=== PATIENT | male | born 2000 | race Two or more races ===

== ENCOUNTER 2020-08-28 13:09 | Emergency (ER) | payer OTHER ==
[~2020-08-28] VITALS: Ht 185.4 cm; Wt 118.2 kg
[2020-08-28] MEDS ORDERED: AZITHROMYCIN 500 MG TABLET PO ONE (15:30)
[2020-08-28] MEDS ORDERED: ALBUTEROL SULFATE HFA 90 MCG/PUFF 8 GM INHALER IH ONE (15:30)
[2020-08-28 15:32] LABS: COVID AG,FIA SOURCE NASOPHARYNGEAL
[2020-08-28 15:45] VITALS: BP 136/95
== END 2020-08-28 17:27 | disposition home or self-care (01) ==
LOC: EMS 13:12
DX: J18.9 Pneumonia, unspecified organism (principal); J45.909 Unspecified asthma, uncomplicated; Z20.822 Contact with and (suspected) exposure to COVID-19
CPT/HCPCS: 71045; 87426; 94640; 99284; A9575; U0003; J3535